=== PATIENT | female | born 1980 | race Two or more races ===

== ENCOUNTER 2021-08-14 20:42 | Emergency (ER) | payer BC ==
[~2021-08-14] VITALS: Ht 167.6 cm; Wt 63.5 kg
--- NOTE | 2021-08-14 20:44 | NUR ---
pt in room 4a, bib ra states has anxity.
--- NOTE | 2021-08-14 21:39 | NUR ---
Dr. Fernandez at bedside for MSE.
--- NOTE | 2021-08-14 22:00 | NUR ---
stacia Tyler [id number] and teri [id number] here to interview the pt.
[2021-08-14] MEDS ORDERED: LORAZEPAM 0.5 MG TABLET PO ONE (22:15)
[2021-08-14] MEDS ORDERED: LORAZEPAM 1 MG TABLET ONE (22:21)
[2021-08-14] MEDS ORDERED: DIPH25CA83 PO (22:42)
[2021-08-14] MEDS ORDERED: METO-295 PO (22:42)
[2021-08-14] MEDS ORDERED: LORA-259 PO (22:42)
[2021-08-14] MEDS ORDERED: NAPR-1164 PO (22:42)
--- NOTE | 2021-08-14 23:10 | NUR ---
Patient discharged to home in stable condition. Written and verbal after care instructions given. Patient verbalizes understanding of instructions. Stressed follow up or return to ER for worsening s/s.
[2021-08-14 23:11] VITALS: BP 110/70
== END 2021-08-14 23:12 | disposition home or self-care (01) ==
LOC: ER 22:42
DX: F45.8 Other somatoform disorders (principal); G43.909 Migraine, unspecified, not intractable, without status migrainosus
CPT/HCPCS: A4663